=== PATIENT | female | born 1955 | race American Indian/Alaskan Native ===

== ENCOUNTER 2016-09-03 23:56 | Emergency (ER) | payer MEDICAID ==
[2016-09-04 01:35] LABS: Bilirubin,Urine NEG (Negative); Blood,Urine NEG (Negative); Ketones,Urine NEG (Negative); Leukocyte Esterase,Urine NEG (Negative); Nitrite,Urine NEG (Negative); Protein,Urine <15 mg/dL mg/dL (Negative)
[2016-09-04 01:44] LABS: Hematocrit 40.6 % (30.3-42.9); Hemoglobin 13.1 gm/dl (10.1-14.3); Mean Corpuscular HGB Conc 32 % (30-34); Mean Corpuscular Hemoglobin 28 pg (28-32); Mean Corpuscular Volume 88 fl (79-97); Platelet Count 326 K/mm3 (140-440); Red Blood Count 4.61 M/mm3 (3.65-5.03); Red Cell Distribution Width 13.5 % (13.2-15.2); White Blood Count 16.8 K/mm3 (4.5-11.0)
[2016-09-04 01:54] LABS: Anion Gap 18 mmol/L; BUN/Creatinine Ratio 23.33; Blood Urea Nitrogen 21 mg/dL (7-17); Calcium 9.4 mg/dL (8.4-10.2); Carbon Dioxide 23 mmol/L (22-30); Chloride 98.3 mmol/L (98-107); Glucose 128 mg/dL (65-100); Potassium 4.3 mmol/L (3.6-5.0); Sodium 135 mmol/L (137-145)
[2016-09-04 02:51] LABS: Blastocytes % (Manual) 0 %
[2016-09-04 02:52] LABS: Basophils % (Manual) 0 % (0.0-1.8); Diff Status Complete; Eosinophils % (Manual) 0 % (0.0-4.3); RBC Morphology Normal
[2016-09-04] MEDS: DUONEB 0.5 MG-3 MG/3 ML SOLN IH ONE (09:20)
--- NOTE | 2016-09-04 10:36 | Emergency Department Report ---
HPI - General Chief Complaint: Pain General Time Seen by Provider: 09/04/16 10:26 - HPI HPI: Chief complaint: Left neck, shoulder, arm, hip and leg pain. Headache. HPI: Patient is a 60-year-old female with history of COPD continues to smoke, congestive heart failure on digoxin, spironolactone and core ache as well as Plavix he states that Tuesday evening began having a headache and left shoulder pain. Patient states she can't move her left arm secondary to pain. Patient denies any weakness states that her left hand feels slightly numb. Mode of arrival: private car Source: Patient and family member Began: Yesterday evening Duration: Continuous Context: History of arthritis Quality: Sharp Severity: 5 out of 10 Improved with: Nothing Worsened with: Movement left shoulder, palpation left trapezius and left paraspinal musculature Associated signs and symptoms: Denies any incontinence. ED Past Medical Hx - Past Medical History Previous Medical History?: Yes Hx Hypertension: Yes Hx Heart Attack/AMI: Yes Hx Congestive Heart Failure: No Hx Diabetes: No Hx Arthritis: Yes (knees,hips,shoulder) Hx Asthma: Yes Hx COPD: No Hx HIV: No - Surgical History Past Surgical History?: Yes Hx Pacemaker: Yes Additional Surgical History: hysterectomy - Social History Smoking Status: Current Every Day Smoker Substance Use Type: Alcohol - Medications Home Medications: Home Medications Medication Instructions Recorded Confirmed Last Taken Type Albuterol Sulfate [Proventil HFA] 90 mcg IH Q4H PRN 04/11/15 09/04/16 09/03/16 History Clopidogrel Bisulfate [Clopidogrel] 75 mg PO DAILY 04/11/15 09/04/16 09/03/16 History Digoxin [Digitek] 125 mcg PO DAILY 04/11/15 09/04/16 09/03/16 History Spironolactone Tab [Aldactone Tab] 25 mg PO DAILY 04/11/15 09/04/16 09/03/16 History Tiotropium [place] [Spiriva] 18 mcg PO DAILY 04/11/15 09/04/16 09/03/16 History Coreg 25 mg PO DAILY 02/12/16 09/04/16 09/03/16 History HYDROcodone/APAP 5-325 [[place] 1 each PO Q6HR PRN #20 tablet 09/04/16 Unknown Rx 5/325] Prednisone [predniSONE 5 mg (6-Day 5 mg PO .TAPER #1 tab.ds.pk 09/04/16 Unknown Rx Pack, 21 Tabs)] predniSONE [Deltasone] 20 mg PO QPM 09/04/16 09/04/16 09/03/16 History predniSONE [Deltasone] 30 mg PO QDAY 09/04/16 09/04/16 09/03/16 History ED Review of Systems ROS: Stated complaint: WEAKNESS LF SIDE Other details as noted in HPI ROS Constitutional: No fever ENT: No uri symptoms Cardiovascular: No chest pain Respiratory: No sob or cough GI: No nausea vomiting or diarrhea : No dysuria frequency or urgency, Skin: No rash Neuro: No focal weakness Psych: No depression Julio/lymph: No edema Physical Exam - Physical Exam Vital Signs: Vital Signs 09/04/16 09/04/16 09/04/16 01:08 06:20 08:32 Temperature 98.1 F Pulse Rate 72 78 Pulse Rate [ Anterior Bilateral Throughout] Respiratory 18 16 Rate Respiratory Rate [Anterior Bilateral Throughout] Blood Pressure 145/94 Blood Pressure 145/90 [Right] O2 Sat by Pulse 97 98 95 Oximetry 09/04/16 09/04/16 09/04/16 08:46 09:00 09:01 Temperature Pulse Rate 74 69 Pulse Rate [ Anterior Bilateral Throughout] Respiratory 23 22 18 Rate Respiratory Rate [Anterior Bilateral Throughout] Blood Pressure 147/84 147/84 Blood Pressure 147/84 [Right] O2 Sat by Pulse 96 97 Oximetry 09/04/16 09/04/16 09:20 09:35 Temperature Pulse Rate Pulse Rate [ 74 80 Anterior Bilateral Throughout] Respiratory Rate Respiratory 18 18 Rate [Anterior Bilateral Throughout] Blood Pressure Blood Pressure [Right] O2 Sat by Pulse Oximetry Physical Exam: GENERAL: The patient is well-developed well-nourished . HEENT: Normocephalic. Atraumatic. Extraocular motions are intact. Patient has moist mucous membranes. NECK: Supple. No meningitic signs are noted. There is no adenopathy noted. CHEST/LUNGS: Clear to auscultation. There is no respiratory distress noted. HEART/CARDIOVASCULAR: Regular. There is no tachycardia. There is no gallop rub or murmur. ABDOMEN: Abdomen is soft, nontender. Patient has normal bowel sounds. There is no abdominal distention. SKIN: There is no rash. There is no edema. There is no diaphoresis. NEURO: The patient is awake, alert, and oriented. The patient is cooperative. The patient has no focal neurologic deficits. The patient has normal speech. MUSCULOSKELETAL: There is tenderness to the left paracervical musculature with spasm, left trapezius, F parathoracic musculature and left shoulder. There is mild tenderness to the left buttocks in a sciatic distribution. Straight leg raise is negative. ED Course Vital Signs 09/04/16 09/04/16 09/04/16 01:08 06:20 08:32 Temperature 98.1 F Pulse Rate 72 78 Pulse Rate [ Anterior Bilateral Throughout] Respiratory 18 16 Rate Respiratory Rate [Anterior Bilateral Throughout] Blood Pressure 145/94 Blood Pressure 145/90 [Right] O2 Sat by Pulse 97 98 95 Oximetry 09/04/16 09/04/16 09/04/16 08:46 09:00 09:01 Temperature Pulse Rate 74 69 Pulse Rate [ Anterior Bilateral Throughout] Respiratory 23 22 18 Rate Respiratory Rate [Anterior Bilateral Throughout] Blood Pressure 147/84 147/84 Blood Pressure 147/84 [Right] O2 Sat by Pulse 96 97 Oximetry 09/04/16 09/04/16 09:20 09:35 Temperature Pulse Rate Pulse Rate [ 74 80 Anterior Bilateral Throughout] Respiratory Rate Respiratory 18 18 Rate [Anterior Bilateral Throughout] Blood Pressure Blood Pressure [Right] O2 Sat by Pulse Oximetry - Reevaluation(s) Reevaluation #1: 09/04/16 12:28 Patient medicated with 4 of IV morphine and IV Zofran. 09/04/16 12:41 Patient medicated with 125 of IV Solu-Medrol. ED Medical Decision Making - Lab Data Result diagrams: 09/04/16 01:28 09/04/16 01:28 Laboratory Tests 09/04/16 01:28 Calcium 9.4 - Radiology Data Radiology results: report reviewed (x-ray of the lumbar spine and the left shoulder showed significant degenerative disease. 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 CT of the C-spine shows significant degenerative disc disease with foraminal narrowing the left C5 6.) Critical care attestation.: If time is entered above; I have spent that time in minutes in the direct care of this critically ill patient, excluding procedure time. ED Disposition Clinical Impression: Cervical radiculopathy at C5 Sciatica Qualifiers: Laterality: left Qualified Code(s): M54.32 - Sciatica, left side Disposition: DISCHARGED TO HOME OR SELFCARE Is pt being admited?: No Does the pt Need Aspirin: No Condition: Stable Instructions: Degenerative Disc Disease (ED), Cervical Radiculopathy (ED), Lumbar Radiculopathy (ED) Prescriptions: HYDROcodone/APAP 5-325 [[place] 5/325] 1 each PO Q6HR PRN #20 tablet PRN Reason: Pain Prednisone [predniSONE 5 mg (6-Day Pack, 21 Tabs)] 5 mg PO .TAPER #1 tab.ds.pk Referrals: ISIDRO MCDANIEL MD [Staff Physician] - 3-5 Days (Dr. Mcdaniel is the primary care doctor.) CESAR KHAN MD [Staff Physician] - 3-5 Days (Dr. Khan is a neurosurgeon.) NGOC KENDRICK MD [Staff Physician] - 3-5 Days (Dr. Kendrick is an orthopedist) Time of Disposition: 12:40
[2016-09-04] MEDS: MORPHINE IV ONE (11:35)
[2016-09-04] MEDS: ZOFRAN IV ONE (11:35)
--- NOTE | 2016-09-04 11:44 | XRay Report ---
LUMBAR SPINE THREE VIEWS: 09/03/16 23:56:00 CLINICAL: Back pain. FINDINGS: Extensive degenerative change from T12-L1 through L5-S1. Normal alignment. Disc space narrowing at L4-5 and L5-S1. Large osteophytes at all levels. The pedicles are intact. Multilevel facet joint sclerosis. The pedicles are intact. No fracture. Normal soft tissues. IMPRESSION: Extensive degenerative disc disease with large osteophytes at all levels.
--- NOTE | 2016-09-04 11:45 | XRay Report ---
LEFT SHOULDER 2 VIEWS: 09/03/16 23:56:00 CLINICAL: Shoulder pain. FINDINGS: No fracture or dislocation. Acromioclavicular joint arthritis. Mild osteopenia. Normal glenohumeral joint. Normal soft tissues. IMPRESSION: Acromioclavicular joint arthritis.
--- NOTE | 2016-09-04 12:24 | Cat Scan Report ---
CT HEAD WITHOUT CONTRAST: 09/04/16 CLINICAL: Headache. TECHNIQUE:2.5-mm noncontrast scans. COMPARISON:None FINDINGS: The ventricles and sulci are normal for age.Subtle hypodensity in the left basal ganglia at the anterior limb of the internal capsule. No other abnormal hypodensity. No mass or mass effect. No hemorrhage, edema or extra-axial collection. The sinuses are clear. Normal orbits and soft tissues. The calvarium and skull base are intact. IMPRESSION: A left basal ganglia hypodensity consistent with a lacunar infarct. A subacute nonhemorrhagic left basal ganglia lacunar infarct is a possibility.
--- NOTE | 2016-09-04 12:30 | Cat Scan Report ---
CT CERVICAL SPINE WITHOUT CONTRAST:09/04/16 CLINICAL: Neck pain. TECHNIQUE: Volumetric acquisition and 1.25-mm axial scan reconstructions without contrast. Sagittal and coronal reformats were performed. FINDINGS: Normal vertebral body alignment. Severe degenerative disc disease from C4-5 through C6-7. Loss of height of the C4, C5 and C6 vertebra with disc space narrowing and large anterior osteophytes. No fracture or subluxation. Normal soft tissues and airway. No apparent disc protrusions or bulges. Large broad-based left uncal and foraminal osteophyte producing moderate narrowing of the left neural foramen at C5. IMPRESSION: Severe degenerative disease from C4-5 through C6-7. Last C5-6 neural foraminal narrowing produced by a large osteophyte.
[2016-09-04 13:24] VITALS: BP 126/79
== END 2016-09-04 13:10 | disposition home or self-care (01) ==
LOC: ED 23:56
DX: M54.12 Radiculopathy, cervical region (principal); M54.32 Sciatica, left side; I10 Essential (primary) hypertension; I25.2 Old myocardial infarction; M19.90 Unspecified osteoarthritis, unspecified site; J45.909 Unspecified asthma, uncomplicated; F17.200 Nicotine dependence, unspecified, uncomplicated; Z90.710 Acquired absence of both cervix and uterus; Z95.0 Presence of cardiac pacemaker
CPT/HCPCS: 36415; 70450; 72100; 72125; 73030; 80048; 81001; 85007; 85025; 94640; 96374; 96375; 99285; J2270; J2405; J2930

== ENCOUNTER 2016-11-26 22:07 | Emergency (ER) | payer MEDICAID ==
[2016-11-26 23:25] LABS: Anion Gap 17 mmol/L; Blood Urea Nitrogen 13 mg/dL (7-17); Calcium 9.3 mg/dL (8.4-10.2); Carbon Dioxide 25 mmol/L (22-30); Chloride 99.2 mmol/L (98-107); Glucose 127 mg/dL (65-100); Potassium 3.9 mmol/L (3.6-5.0); Sodium 137 mmol/L (137-145)
[2016-11-26] MEDS ORDERED: NORCO 5/325 ONE (23:49)
[2016-11-26] MEDS ORDERED: NORCO 5/325 PO ONE (23:51)
[2016-11-26 23:53] LABS: Hematocrit 38.7 % (30.3-42.9); Hemoglobin 12.4 gm/dl (10.1-14.3); Mean Corpuscular HGB Conc 32 % (30-34); Mean Corpuscular Hemoglobin 29 pg (28-32); Mean Corpuscular Volume 91 fl (79-97); Platelet Count 301 K/mm3 (140-440); Red Blood Count 4.27 M/mm3 (3.65-5.03); Red Cell Distribution Width 13.3 % (13.2-15.2); White Blood Count 10.4 K/mm3 (4.5-11.0)
--- NOTE | 2016-11-27 00:23 | Emergency Department Report ---
HPI - General Chief Complaint: Extremity Injury, Upper Time Seen by Provider: 11/27/16 00:18 - HPI HPI: Patient is a 60-year-old female presents to ED complaining of left arm pain for the past 63 weeks. Patient states she saw her primary care Dr. Guzman on October. For comfort tunnel syndrome. Patient 6 Dr. Guzman gave her shot into her joint spaces days she's been experiencing some pain in her left arm. She states pain is much worse and has gotten worse over the last couple of days. Patient states she has appointment with Dr. ramires on November 29 Patient denies fever/chills/nausea/vomiting/abdominal pain/chest pain or any other problems. Patient simply states she cannot tolerate the pain in her left lower arm area. ED Past Medical Hx - Past Medical History Hx Hypertension: Yes Hx Heart Attack/AMI: Yes Hx Congestive Heart Failure: No Hx Diabetes: No Hx Arthritis: Yes (knees,hips,shoulder) Hx Asthma: Yes Hx COPD: No Hx HIV: No Additional medical history: carpal tunnel syndrome both wrist - Surgical History Hx Pacemaker: Yes Additional Surgical History: hysterectomy,defibilator - Social History Smoking Status: Current Every Day Smoker Substance Use Type: None - Medications Home Medications: Home Medications Medication Instructions Recorded Confirmed Last Taken Type Albuterol Sulfate [Proventil HFA] 90 mcg IH Q4H PRN 04/11/15 11/26/16 11/26/16 History Clopidogrel Bisulfate [Clopidogrel] 75 mg PO DAILY 04/11/15 11/26/16 11/26/16 History Digoxin [Digitek] 125 mcg PO DAILY 04/11/15 11/26/16 11/26/16 History Spironolactone Tab [Aldactone Tab] 25 mg PO DAILY 04/11/15 11/26/16 11/26/16 History Tiotropium [place] [Spiriva] 18 mcg PO DAILY 04/11/15 11/26/16 11/26/16 History Coreg 25 mg PO DAILY 02/12/16 11/26/16 11/26/16 History HYDROcodone/APAP 5-325 [[place] 1 each PO Q6HR PRN #20 tablet 09/04/16 11/26/16 Unknown Rx 5/325] Prednisone [predniSONE 5 mg (6-Day 5 mg PO .TAPER #1 tab.ds.pk 09/04/16 Unknown Rx Pack, 21 Tabs)] predniSONE [Deltasone] 20 mg PO QPM 09/04/16 11/26/16 11/26/16 History predniSONE [Deltasone] 30 mg PO QDAY 09/04/16 11/26/16 09/03/16 History Acetaminophen-Codeine #4 TAB 1 mg PO PRN PRN 11/26/16 11/26/16 Unknown History Promethazine/Phenyleph/Codeine 1 ml PO DAILY 11/26/16 11/26/16 11/26/16 History [Promethazine Vc-Codeine Syrup] Acetaminophen/Codeine [Tylenol 1 tab PO Q6H PRN #12 tab 11/27/16 Unknown Rx /Codeine # 3 tab] Cyclobenzaprine [Flexeril] 10 mg PO QHS PRN #20 tablet 11/27/16 Unknown Rx Diclofenac Sodium 75 mg PO BID #30 tablet. 11/27/16 Unknown Rx ED Review of Systems ROS: Stated complaint: L ARM PAIN Other details as noted in HPI Constitutional: denies: chills, fever Eyes: denies: eye pain, eye discharge, vision change ENT: denies: ear pain, throat pain Respiratory: denies: cough, shortness of breath, wheezing Cardiovascular: denies: chest pain, palpitations Endocrine: no symptoms reported Gastrointestinal: denies: abdominal pain, nausea, diarrhea Genitourinary: denies: urgency, dysuria, discharge Musculoskeletal: denies: back pain, joint swelling, arthralgia Skin: denies: rash, lesions Neurological: denies: headache, weakness, paresthesias Psychiatric: denies: anxiety, depression Hematological/Lymphatic: denies: easy bleeding, easy bruising Physical Exam - Physical Exam Vital Signs: Vital Signs 11/26/16 11/26/16 22:14 23:19 Temperature 98.3 F Pulse Rate 87 Respiratory 22 18 Rate Blood Pressure 158/108 O2 Sat by Pulse 98 Oximetry Physical Exam: GENERAL: Alert and oriented x3, in some mild distress, patient is crying stating she is in pain, Normal Gait, atraumatic. HEAD: Head is normocephalic and a-traumatic. EYES: Extra ocular muscles are intact. Pupils are equal, round, and reactive to light and accommodation. NECK: Supple. Non edematous, No carotid bruits. No lymphadenopathy or thyromegaly. No C-spine tenderness LUNGS: Symetrical with respiration, No wheezing, no rales or crackles, CTAB. HEART: S1, S2 present, regular rate and rhythm without murmur, no rubs, no gallops. EXTREMITIES/MUSCULOSKELETAL: No cyanosis, clubbing, rash, lesions or edema. Full ROM bilaterally. UE/LE Pulses 2+ bilaterally. LE and UE 5+ strength bilaterally, NEUROLOGIC: The patient is cooperative with no focal neurologic deficits. Cranial nerves II through XII are grossly intact. Normal speech. Normal sensation in bilateral upper extremities, No loss of sensation, SKIN: Warm and dry, No lesions, No ulceration or induration present. ED Course Vital Signs 11/26/16 11/26/16 22:14 23:19 Temperature 98.3 F Pulse Rate 87 Respiratory 22 18 Rate Blood Pressure 158/108 O2 Sat by Pulse 98 Oximetry ED Medical Decision Making - Lab Data Result diagrams: 11/26/16 22:48 11/26/16 22:48 - Medical Decision Making 60-year-old female presents with carpal tunnel syndrome exacerbation ED course: Patient received Valium, norco inED. CBC, CMP, troponin was ordered prior to my evaluation of this patient All labs within normal limits EKG completed EKG shows normal sinus rhythm with some abnormalities seen from old EKG Discuss all findings the patient Patient agitation decreased. Discussed the patient follow up with her primary care doctor. Discussed home medication to help with the pain. Vital signs are normal patient is in no acute distress Critical care attestation.: If time is entered above; I have spent that time in minutes in the direct care of this critically ill patient, excluding procedure time. ED Disposition Clinical Impression: Carpal tunnel syndrome of left wrist Arthralgia Qualifiers: Joint pain location: wrist Laterality: left Qualified Code(s): M25.532 - Pain in left wrist Disposition: DISCHARGED TO HOME OR SELFCARE Is pt being admited?: No Does the pt Need Aspirin: No Condition: Stable Instructions: Carpal Tunnel Syndrome (ED), Paresthesia (ED) Prescriptions: Cyclobenzaprine [Flexeril] 10 mg PO QHS PRN #20 tablet PRN Reason: Muscle Spasm Acetaminophen/Codeine [Tylenol /Codeine # 3 tab] 1 tab PO Q6H PRN #12 tab PRN Reason: Pain Diclofenac Sodium 75 mg PO BID #[address] tablet.[address] Mclean: ISIDRO ALCALA MD [Primary Care Provider] - 3-5 Days Forms: Accompanied Note, Work/School Release Form(ED) Time of Disposition: 01:18
[2016-11-27] MEDS ORDERED: VALIUM PO ONE (01:00)
[2016-11-27] MEDS ORDERED: NORCO 5/325 PO ONE (01:28)
[2016-11-27 01:29] VITALS: BP 134/86
== END 2016-11-27 01:33 | disposition home or self-care (01) ==
LOC: ED 22:07
DX: G56.02 Carpal tunnel syndrome, left upper limb (principal); I10 Essential (primary) hypertension; F17.200 Nicotine dependence, unspecified, uncomplicated; I25.2 Old myocardial infarction; M19.90 Unspecified osteoarthritis, unspecified site; J45.909 Unspecified asthma, uncomplicated; Z79.02 Long term (current) use of antithrombotics/antiplatelets; Z95.0 Presence of cardiac pacemaker
CPT/HCPCS: 36415; 80048; 84484; 85027; 93005; 93010; 99283

== ENCOUNTER 2017-02-12 16:27 | Emergency (ER) | payer MEDICAID ==
[2017-02-12 17:10] LABS: Eosinophils % (Auto) 2.7 % (0.0-4.3); Hematocrit 38.1 % (30.3-42.9); Hemoglobin 12.4 gm/dl (10.1-14.3); Mean Corpuscular HGB Conc 33 % (30-34); Mean Corpuscular Hemoglobin 29 pg (28-32); Mean Corpuscular Volume 90 fl (79-97); Platelet Count 291 K/mm3 (140-440); Red Blood Count 4.23 M/mm3 (3.65-5.03); Red Cell Distribution Width 13.4 % (13.2-15.2); White Blood Count 9.9 K/mm3 (4.5-11.0)
[2017-02-12 17:19] LABS: Anion Gap 20 mmol/L; BUN/Creatinine Ratio 13.33; Blood Urea Nitrogen 12 mg/dL (7-17); Calcium 8.7 mg/dL (8.4-10.2); Carbon Dioxide 19 mmol/L (22-30); Glucose 135 mg/dL (65-100); Potassium 3.8 mmol/L (3.6-5.0); Sodium 138 mmol/L (137-145)
--- NOTE | 2017-02-12 17:45 | XRay Report ---
FINAL REPORT EXAM: XR CHEST ROUTINE 2V HISTORY: Shortness of breath TECHNIQUE: Chest two views frontal and lateral PRIORS: None. FINDINGS: Cardiac and mediastinal contours are unremarkable. No focal pulmonary infiltrate is identified. No pleural fluid collection seen. Pulmonary vasculature is unremarkable. Pacemaker is present. Lead wires are intact. IMPRESSION: Pacemaker. No acute abnormality.
[2017-02-12] MEDS: ATROVENT IH ONE ×2 (21:10→22:05)
[2017-02-12] MEDS: XOPENEX IH ONE ×2 (21:10→22:04)
--- NOTE | 2017-02-12 21:11 | Emergency Department Report ---
ED Shortness of Breath HPI - General Chief Complaint: Dyspnea/Respdistress Stated Complaint: CHEST PAIN Time Seen by Provider: 02/12/17 21:01 Source: patient, EMS Mode of arrival: Ambulatory Limitations: No Limitations - History of Present Illness Initial Comments: 61 years old female, with shortness of breath for 3 days history of COPD congestive heart failure. Patient is being coughing greenish sputum denied any fever nausea vomiting. Describes a left-sided chest pain sharp in nature increased with inspiration no other complaint. MD Complaint: shortness of breath, cough, chest pain - Related Data Home Medications Medication Instructions Recorded Confirmed Last Taken Albuterol Sulfate [Proventil HFA] 90 mcg IH Q4H PRN 04/11/15 11/26/16 11/26/16 Clopidogrel Bisulfate [Clopidogrel] 75 mg PO DAILY 04/11/15 11/26/16 11/26/16 Digoxin [Digitek] 125 mcg PO DAILY 04/11/15 11/26/16 11/26/16 Spironolactone Tab [Aldactone Tab] 25 mg PO DAILY 04/11/15 11/26/16 11/26/16 Tiotropium [place] [Spiriva] 18 mcg PO DAILY 04/11/15 11/26/16 11/26/16 Coreg 25 mg PO DAILY 02/12/16 11/26/16 11/26/16 predniSONE [Deltasone] 20 mg PO QPM 09/04/16 11/26/16 11/26/16 predniSONE [Deltasone] 30 mg PO QDAY 09/04/16 11/26/16 09/03/16 Acetaminophen-Codeine #4 TAB 1 mg PO PRN PRN 11/26/16 11/26/16 Unknown Promethazine/Phenyleph/Codeine 1 ml PO DAILY 11/26/16 11/26/16 11/26/16 [Promethazine Vc-Codeine Syrup] Previous Rx's Medication Instructions Recorded Last Taken Type HYDROcodone/APAP 5-325 [[place] 1 each PO Q6HR PRN #20 tablet 09/04/16 Unknown Rx 5/325] Prednisone [predniSONE 5 mg (6-Day 5 mg PO .TAPER #1 tab.ds.pk 09/04/16 Unknown Rx Pack, 21 Tabs)] Acetaminophen/Codeine [Tylenol 1 tab PO Q6H PRN #12 tab 11/27/16 Unknown Rx /Codeine # 3 tab] Cyclobenzaprine [Flexeril] 10 mg PO QHS PRN #20 tablet 11/27/16 Unknown Rx Diclofenac Sodium 75 mg PO BID #30 tablet. 11/27/16 Unknown Rx Levofloxacin [Levaquin TAB] 500 mg PO QDAY #7 tablet 02/12/17 Unknown Rx Prednisone [predniSONE 10 mg 10 mg PO .TAPER #1 tab.ds.pk 02/12/17 Unknown Rx (6-Day Pack, 21 Tabs)] Allergies Allergy/AdvReac Type Severity Reaction Status Date / Time aspirin Allergy Unknown Verified 04/11/15 19:35 Penicillins Allergy Unknown Verified 04/11/15 19:35 Tetanus Vaccines & Toxoid Allergy Unknown Verified 09/04/16 01:13 ED Review of Systems ROS: Stated complaint: CHEST PAIN Other details as noted in HPI Comment: All other systems reviewed and negative Constitutional: denies: chills, fever Respiratory: cough, shortness of breath, SOB with exertion, wheezing Cardiovascular: chest pain, orthopnea Gastrointestinal: denies: abdominal pain, nausea Neurological: denies: headache, numbness, confusion ED Past Medical Hx - Past Medical History Previous Medical History?: Yes Hx Hypertension: Yes Hx Heart Attack/AMI: Yes Hx Congestive Heart Failure: No Hx Diabetes: No Hx Arthritis: Yes (knees,hips,shoulder) Hx Asthma: Yes Hx COPD: No Hx HIV: No Additional medical history: carpal tunnel syndrome both wrist - Surgical History Past Surgical History?: Yes Hx Pacemaker: Yes Additional Surgical History: hysterectomy,defibilator - Social History Smoking Status: Current Some Day Smoker Substance Use Type: None - Medications Home Medications: Home Medications Medication Instructions Recorded Confirmed Last Taken Type Albuterol Sulfate [Proventil HFA] 90 mcg IH Q4H PRN 04/11/15 11/26/16 11/26/16 History Clopidogrel Bisulfate [Clopidogrel] 75 mg PO DAILY 04/11/15 11/26/16 11/26/16 History Digoxin [Digitek] 125 mcg PO DAILY 04/11/15 11/26/16 11/26/16 History Spironolactone Tab [Aldactone Tab] 25 mg PO DAILY 04/11/15 11/26/16 11/26/16 History Tiotropium [place] [Spiriva] 18 mcg PO DAILY 04/11/15 11/26/1617 History Coreg 25 mg PO DAILY 02/12/16 11/26/16 11/26/16 History HYDROcodone/APAP 5-325 [[place] 1 each PO Q6HR PRN #20 tablet 09/04/16 11/26/16 Unknown Rx 5/325] Prednisone [predniSONE 5 mg (6-Day 5 mg PO .TAPER #1 tab.ds.pk 09/04/16 Unknown Rx Pack, 21 Tabs)] predniSONE [Deltasone] 20 mg PO QPM 09/04/16 11/26/16 11/26/16 History predniSONE [Deltasone] 30 mg PO QDAY 09/04/16 11/26/16 09/03/16 History Acetaminophen-Codeine #4 TAB 1 mg PO PRN PRN 11/26/16 11/26/16 Unknown History Promethazine/Phenyleph/Codeine 1 ml PO DAILY 11/26/16 11/26/16 11/26/16 History [Promethazine Vc-Codeine Syrup] Acetaminophen/Codeine [Tylenol 1 tab PO Q6H PRN #12 tab 11/27/16 Unknown Rx /Codeine # 3 tab] Cyclobenzaprine [Flexeril] 10 mg PO QHS PRN #20 tablet 11/27/16 Unknown Rx Diclofenac Sodium 75 mg PO BID #30 tablet. 11/27/16 Unknown Rx Levofloxacin [Levaquin TAB] 500 mg PO QDAY #7 tablet 02/12/17 Unknown Rx Prednisone [predniSONE 10 mg 10 mg PO .TAPER #1 tab.ds.pk 02/12/17 Unknown Rx (6-Day Pack, 21 Tabs)] ED Physical Exam - General Limitations: No Limitations General appearance: alert, in no apparent distress - Neck Neck exam: Present: normal inspection - Respiratory Respiratory exam: Present: wheezes, rhonchi, decreased breath sounds, prolonged expiratory. Absent: rales, stridor - Cardiovascular Cardiovascular Exam: Present: regular rate, normal rhythm, normal heart sounds - GI/Abdominal GI/Abdominal exam: Present: soft. Absent: tenderness, guarding, rebound, mass, bruit, pulsatile mass, hernia - Neurological Exam Neurological exam: Present: alert, oriented X3, CN II-XII intact - Skin Skin exam: Present: warm, normal color ED Course Vital Signs 02/12/17 02/12/17 02/12/17 16:38 21:39 21:40 Temperature 99 F Pulse Rate 81 74 Respiratory 26 H 20 18 Rate Blood Pressure 117/79 Blood Pressure 129/75 [Left] O2 Sat by Pulse 97 98 Oximetry - Reevaluation(s) Reevaluation #1: 02/12/17 22:00 Patient stated that she is feeling much better no shortness of breath on exam no wheezing. Advised patient to follow-up with her primary care physician and correctional counselor patient on her smoking too ED Medical Decision Making - Lab Data Result diagrams: 02/12/17 16:45 02/12/17 16:45 Critical care attestation.: If time is entered above; I have spent that time in minutes in the direct care of this critically ill patient, excluding procedure time. ED Disposition Clinical Impression: COPD with exacerbation Disposition: DC-01 TO HOME OR SELFCARE Is pt being admited?: No Condition: Stable Instructions: Chronic Obstructive Pulmonary Disease (ED) Referrals: PRIMARY CARE [Primary Care Provider] - 3-5 Days
[2017-02-12 22:22] VITALS: BP 123/68
== END 2017-02-12 22:22 | disposition home or self-care (01) ==
LOC: ED 16:27
DX: J44.1 Chronic obstructive pulmonary disease with (acute) exacerbation (principal); I10 Essential (primary) hypertension; I21.3 ST elevation (STEMI) myocardial infarction of unspecified site; M19.90 Unspecified osteoarthritis, unspecified site; F17.200 Nicotine dependence, unspecified, uncomplicated; Z90.710 Acquired absence of both cervix and uterus; Z95.0 Presence of cardiac pacemaker; Z88.0 Allergy status to penicillin; Z88.6 Allergy status to analgesic agent; Z88.7 Allergy status to serum and vaccine
CPT/HCPCS: 36415; 71020; 80048; 83880; 84484; 85025; 93005; 93010; 94640; 96372; 99284; J2930

== ENCOUNTER 2017-07-06 00:49 | Emergency (ER) | payer MEDICAID ==
--- NOTE | 2017-07-06 00:54 | Emergency Department Report ---
ED General Adult HPI - General Chief complaint: Chest Pain Stated complaint: DIFFICULTY IN BREATHING Source: patient, EMS (ems notes not available at time of chart dictation), RN notes reviewed, old records reviewed Mode of arrival: Stretcher Limitations: No Limitations - History of Present Illness Initial comments: This is a 61-year-old female who was previously unknown to this provider, has a past medical history of heart disease, ICD placement, also reports a history of bronchitis. Patient is brought to the hospital by EMS for left-sided chest wall pain. She has been indicating that she's been coughing, has some left- sided chest wall pain that is associated with cough. She has chronic shortness of breath, and she was to some blood-tinged emesis. There is no leg pain or leg swelling, and patient denies DVT and pulmonary embolus risk factors. Her pain is sharp, it does not radiate anywhere, it increases with breathing, coughing, and it decreases with rest and IV fentanyl. Patient reports she's been having a cough, this has proceeded her pain. -: Gradual Location: chest Radiation: non-radiation Quality: burning, stabbing, aching Consistency: constant Improves with: medication Worsens with: movement Associated Symptoms: chest pain, cough, malaise, shortness of breath, weakness. denies: confusion, headaches, loss of appetite, seizure, syncope - Related Data Home Medications Medication Instructions Recorded Confirmed Last Taken Albuterol Sulfate [Proventil HFA] 90 mcg IH Q4H PRN 04/11/15 11/26/16 11/26/16 Clopidogrel Bisulfate [Clopidogrel] 75 mg PO DAILY 04/11/15 11/26/16 11/26/16 Digoxin [Digitek] 125 mcg PO DAILY 04/11/15 11/26/16 11/26/16 Spironolactone Tab [Aldactone Tab] 25 mg PO DAILY 04/11/15 11/26/16 11/26/16 Tiotropium [place] [Spiriva] 18 mcg PO DAILY 04/11/15 11/26/16 11/26/16 Coreg 25 mg PO DAILY 02/12/16 11/26/16 11/26/16 predniSONE [Deltasone] 20 mg PO QPM 09/04/16 11/26/16 11/26/16 predniSONE [Deltasone] 30 mg PO QDAY 03/05/1311/26/16 09/03/16 Acetaminophen-Codeine #4 TAB 1 mg PO PRN PRN 11/26/16 11/26/16 Unknown Promethazine/Phenyleph/Codeine 1 ml PO DAILY 11/26/16 11/26/16 11/26/16 [Promethazine Vc-Codeine Syrup] Previous Rx's Medication Instructions Recorded Last Taken Type HYDROcodone/APAP 5-325 [[place] 1 each PO Q6HR PRN #20 tablet 09/04/16 Unknown Rx 5/325] Prednisone [predniSONE 5 mg (6-Day 5 mg PO .TAPER #1 tab.ds.pk 09/04/16 Unknown Rx Pack, 21 Tabs)] Acetaminophen/Codeine [Tylenol 1 tab PO Q6H PRN #12 tab 11/27/16 Unknown Rx /Codeine # 3 tab] Cyclobenzaprine [Flexeril] 10 mg PO QHS PRN #20 tablet 11/27/16 Unknown Rx Diclofenac Sodium 75 mg PO BID #30 tablet.dr 11/27/16 Unknown Rx Levofloxacin [Levaquin TAB] 500 mg PO QDAY #7 tablet 02/12/17 Unknown Rx Ondansetron [Zofran Odt] 4 mg PO Q8HR PRN #14 tab.rapdis 02/12/17 Unknown Rx Prednisone [predniSONE 10 mg 10 mg PO .TAPER #1 tab.ds.pk 02/12/17 Unknown Rx (6-Day Pack, 21 Tabs)] traMADol [Ultram] 50 mg PO Q6HR PRN #14 tablet 02/12/17 Unknown Rx Albuterol Sulfate [Proair 90 mcg IH Q4HR PRN #2 aer.pow.ba 07/06/17 Unknown Rx Respiclick] Ipratropium [place] [Atrovent Hfa] 12.9 gm IH Q4HR #2 hfa.aer.ad 07/06/17 Unknown Rx Ondansetron [Zofran Odt] 4 mg PO Q8HR PRN #20 tab.rapdis 07/06/17 Unknown Rx Allergies Allergy/AdvReac Type Severity Reaction Status Date / Time aspirin Allergy Unknown Verified 04/11/15 19:35 Penicillins Allergy Unknown Verified 04/11/15 19:35 Tetanus Vaccines and Toxoid Allergy Unknown Verified 09/04/16 01:13 [Tetanus Vaccines & Toxoid] ED Review of Systems ROS: Stated complaint: DIFFICULTY IN BREATHING Other details as noted in HPI ED Past Medical Hx - Past Medical History Hx Hypertension: Yes Hx Heart Attack/AMI: Yes Hx Congestive Heart Failure: No Hx Diabetes: No Hx Arthritis: Yes (knees,hips,shoulder) Hx Asthma: Yes Hx COPD: No Hx HIV: No Additional medical history: carpal tunnel syndrome both wrist - Surgical History Hx Pacemaker: Yes Additional Surgical History: hysterectomy,defibilator - Social History Smoking Status: Current Some Day Smoker Substance Use Type: None - Medications Home Medications: Home Medications Medication Instructions Recorded Confirmed Last Taken Type Albuterol Sulfate [Proventil HFA] 90 mcg IH Q4H PRN 04/11/15 11/26/16 11/26/16 History Clopidogrel Bisulfate [Clopidogrel] 75 mg PO DAILY 04/11/15 11/26/16 11/26/16 History Digoxin [Digitek] 125 mcg PO DAILY 04/11/15 11/26/16 11/26/16 History Spironolactone Tab [Aldactone Tab] 25 mg PO DAILY 04/11/15 11/26/16 11/26/16 History Tiotropium [place] [Spiriva] 18 mcg PO DAILY 04/11/15 11/26/16 11/26/16 History Coreg 25 mg PO DAILY 02/12/16 11/26/16 11/26/16 History HYDROcodone/APAP 5-325 [[place] 1 each PO Q6HR PRN #20 tablet 09/04/16 11/26/16 Unknown Rx 5/325] Prednisone [predniSONE 5 mg (6-Day 5 mg PO .TAPER #1 tab.ds.pk 09/04/16 Unknown Rx Pack, 21 Tabs)] predniSONE [Deltasone] 20 mg PO QPM 09/04/16 11/26/16 11/26/16 History predniSONE [Deltasone] 30 mg PO QDAY 09/04/16 11/26/16 09/03/16 History Acetaminophen-Codeine #4 TAB 1 mg PO PRN PRN 11/26/16 11/26/16 Unknown History Promethazine/Phenyleph/Codeine 1 ml PO DAILY 11/26/16 11/26/16 11/26/16 History [Promethazine Vc-Codeine Syrup] Acetaminophen/Codeine [Tylenol 1 tab PO Q6H PRN #12 tab 11/27/16 Unknown Rx /Codeine # 3 tab] Cyclobenzaprine [Flexeril] 10 mg PO QHS PRN #20 tablet 11/27/16 Unknown Rx Diclofenac Sodium 75 mg PO BID #30 tablet.dr 11/27/16 Unknown Rx Levofloxacin [Levaquin TAB] 500 mg PO QDAY #7 tablet 02/12/17 Unknown Rx Ondansetron [Zofran Odt] 4 mg PO Q8HR PRN #14 tab.rapdis 02/12/17 Unknown Rx Prednisone [predniSONE 10 mg 10 mg PO .TAPER #1 tab.ds.pk 02/12/17 Unknown Rx (6-Day Pack, 21 Tabs)] traMADol [Ultram] 50 mg PO Q6HR PRN #14 tablet 02/12/17 Unknown Rx Albuterol Sulfate [Proair 90 mcg IH Q4HR PRN #2 aer.pow.ba 07/06/17 Unknown Rx Respiclick] Ipratropium [place] [Atrovent Hfa] 12.9 gm IH Q4HR #2 hfa.aer.ad 07/06/17 Unknown Rx Ondansetron [Zofran Odt] 4 mg PO Q8HR PRN #20 tab.rapdis 07/06/17 Unknown Rx ED Physical Exam - General General appearance: alert, in distress, obese - Head Head exam: Present: atraumatic, normocephalic - Eye Eye exam: Present: normal appearance, EOMI. Absent: nystagmus - ENT ENT exam: Present: normal exam, normal orophraynx, mucous membranes moist, normal external ear exam - Neck Neck exam: Present: normal inspection, full ROM - Respiratory Respiratory exam: Present: normal lung sounds bilaterally, chest wall tenderness. Absent: respiratory distress, wheezes, rales, rhonchi, stridor - Cardiovascular Cardiovascular Exam: Present: regular rate, normal rhythm, normal heart sounds. Absent: bradycardia, tachycardia, irregular rhythm, systolic murmur, diastolic murmur, rubs, gallop - GI/Abdominal GI/Abdominal exam: Present: soft, distended, normal bowel sounds. Absent: tenderness, guarding, rebound, rigid, pulsatile mass - Extremities Exam Extremities exam: Present: normal inspection, full ROM, normal capillary refill , pedal edema. Absent: joint swelling - Back Exam Back exam: Present: normal inspection, full ROM. Absent: tenderness, CVA tenderness (R), paraspinal tenderness, vertebral tenderness - Neurological Exam Neurological exam: Present: alert, oriented X3, CN II-XII intact, other ( Extraocular movements intact. Tongue midline. No facial droop. Facial sensation intact to light touch in the V1, V2, V3 distribution bilaterally. 5 and 5 strength in 4 extremities.. Sensation is intact to light touch in 4 extremities.). Absent: motor sensory deficit - Psychiatric Psychiatric exam: Present: normal affect, normal mood - Skin Skin exam: Present: warm, dry, intact, normal color. Absent: rash ED Course Vital Signs 07/06/17 07/06/17 07/06/17 01:07 02:00 02:01 Temperature 98.5 F Pulse Rate 79 78 Respiratory 26 H 17 Rate Blood Pressure 134/78 130/73 Blood Pressure 134/78 [Right] O2 Sat by Pulse 98 98 99 Oximetry - Reevaluation(s) Reevaluation #1: 07/06/17 03:53 Differential diagnosis, including but not limited to: Bronchitis, COPD, pneumonia, bronchiectasis, pulmonary embolus, fractured rib, pneumothorax Assessment and plan: A 1-year-old female complaining of cough, rib pain, bloody cough, no pulmonary embolus or DVT risk factors, low risk by well's criteria, troponin negative 2, EKG unchanged 2, clinical history is unlikely to be related to acute coronary syndrome, patient is low risk by CHLOE score, she is low risk by heart score. Her symptoms were markedly improved with IV fentanyl. Reevaluation #2: 07/06/17 04:45 CT scan of the chest was negative for acute medical findings, pulmonary embolus and pneumonia. Incidental right-sided abnormalities noted, the patient can follow-up with her outpatient primary care doctor for this. Troponin negative 2, EKG unchanged 2, the patient is now resting comfortably. Most likely has bronchitis with component of costochondritis, patient is suitable to follow-up with her outpatient primary care doctor. Based on the history and physical, patient low risk by CHLOE score, low risk by heart score. - EJ/Peripheral Line Neck L Time Out Performed: Yes Indications: multiple IV sites needed Skin Cleansed in Sterile Fashion: Yes Size: 18 Dressing Placed: Tegaderm Patient Tolerated Procedure: well ED Medical Decision Making - Lab Data Result diagrams: 07/06/17 01:00 07/06/17 01:00 Vital Signs 07/06/17 07/06/17 07/06/17 01:07 02:00 02:01 Temperature 98.5 F Pulse Rate 79 78 Respiratory 26 H 17 Rate Blood Pressure 134/78 130/73 Blood Pressure 134/78 [Right] O2 Sat by Pulse 98 98 99 Oximetry Labs 07/06/17 07/06/17 07/06/17 01:00 01:00 01:00 WBC 12.9 H RBC 4.34 Hgb 12.8 Hct 38.6 MCV 89 MCH 29 MCHC 33 RDW 13.2 Plt Count 283 Lymph % (Auto) 23.9 [place] % (Auto) 8.3 H Eos % (Auto) 3.2 Baso % (Auto) 0.6 Lymph # 3.1 [place] # 1.1 H Eos # 0.4 Baso # 0.1 Seg Neutrophils % 64.0 Seg Neutrophils # 8.3 H PT 12.2 INR 0.87 APTT 26.6 POC ABG pH POC ABG pCO2 POC ABG pO2 POC ABG HCO3 POC ABG Total CO2 POC ABG O2 Sat POC ABG Base Excess FiO2 Sodium 139 Potassium 4.2 Chloride 100.3 Carbon Dioxide 25 Anion Gap 18 BUN 15 Creatinine 1.0 Estimated GFR > 60 BUN/Creatinine Ratio 15 Glucose 85 Lactic Acid Calcium 9.2 Magnesium 1.70 Total Bilirubin 0.40 AST 28 ALT 26 Alkaline Phosphatase 69 Troponin T < 0.010 Total Protein 7.8 Albumin 3.9 Albumin/Globulin Ratio 1.0 07/06/17 07/06/17 01:00 01:46 WBC RBC Hgb Hct MCV MCH MCHC RDW Plt Count Lymph % (Auto) [place] % (Auto) Eos % (Auto) Baso % (Auto) Lymph # [place] # Eos # Baso # Seg Neutrophils % Seg Neutrophils # PT INR APTT POC ABG pH 7.456 H POC ABG pCO2 31.4 L POC ABG pO2 131 H POC ABG HCO3 22.1 POC ABG Total CO2 23 POC ABG O2 Sat 99 POC ABG Base Excess -2 FiO2 32 Sodium Potassium Chloride Carbon Dioxide Anion Gap BUN Creatinine Estimated GFR BUN/Creatinine Ratio Glucose Lactic Acid 0.80 Calcium Magnesium Total Bilirubin AST ALT Alkaline Phosphatase Troponin T Total Protein Albumin Albumin/Globulin Ratio - EKG Data Interpretation: unchanged when compared t (02/12/2017) 07/06/17 03:54 Sinus, 80 bpm, left ventricular hypertrophy, left axis deviation, incomplete right bundle-branch block, numerous T-wave abnormalities in the lateral leads, abnormal EKG, not morphologically consistent with ST elevation myocardial infarction - Radiology Data Radiology results: report reviewed, image reviewed Referring Physician: KYRA NUNN Patient Name: IVAN DIEZ Date of : 1955 Sex: Female Report Date: 2017-07-05 Report Status: Finalized Findings [address] [address] XRay Report Signed Patient: IVAN DIEZ MR#: [id number] : 1955 Acct:[id number] Age/Sex: 61 / F ADM Date: 07/06/17 Loc: ED Attending Dr: Ordering Physician: KYRA NUNN MD Date of Service: 07/06/17 Procedure(s): XR chest 1V ap Accession Number(s): [id number] cc: KYRA NUNN MD Fluoro Time In Minutes: FINAL REPORT EXAM: XR CHEST 1V AP HISTORY: Dyspnea TECHNIQUE: A portable upright view the chest was obtained. Comparison is made to the study of 02/12/2017. FINDINGS: Heart size and mediastinum appear normal. The lungs are clear. Pleural fluid is not seen. There is a pacemaker overlying the left chest wall with the lead in the right ventricle. The bones and soft tissues do not show any acute changes. IMPRESSION: No active chest disease. Transcribed By: RB Dictated By: NIKO REINOSO MD Electronically Authenticated By: NIKO REINOSO MD Signed Date/Time: 07/05/17 2151 Referring Physician: KYRA NUNN Patient Name: IVAN DIEZ Date of : 1955 Sex: Female Report Date: 2017-07-05 Report Status: Finalized Findings [address] [address] Cat Scan Report Signed Patient: IVAN DIEZ MR#: [id number] : 1955 Acct:[id number] Age/Sex: 61 / F ADM Date: 07/06/17 Loc: ED Attending Dr: Ordering Physician: KYRA NUNN MD Date of Service: 07/06/17 Procedure(s): CT angio chest Accession Number(s): [id number] cc: KYRA NUNN MD FINAL REPORT EXAM: CT ANGIO CHEST HISTORY: left sided cp TECHNIQUE: A CT angiogram was obtained of the thorax following the intravenous injection of 100 cc of Omnipaque 350. Rotational, sagittal and coronal MIP reconstructions were reviewed. FINDINGS: There is no evidence of pulmonary embolus, vascular congestion, or aortic dissection. The heart size is normal. Pericardial fluid is not seen. There is no evidence of lymphadenopathy. The lungs reveal diffuse interstitial prominence and emphysematous changes. There are no localized infiltrates or effusions. In the posterior segment of the right upper lobe is a noncalcified 8.4 millimeter solitary pulmonary nodule. No additional nodules are seen. At the thoracic inlet there is diffuse enlargement of thyroid gland with heterogeneous attenuation compatible with multinodular goiter. There is a pacemaker along the left chest wall. The skeletal structures reveal multilevel disc degeneration in the thoracic spine. IMPRESSION: No evidence of pulmonary embolus, vascular congestion, or aortic dissection. Emphysema with extensive interstitial changes. 8.4 mm solitary pulmonary nodule in the posterior segment of the right upper lobe. Follow-up study recommended 3 months to confirm stability. Multinodular goiter. Transcribed By: RB Dictated By: NIKO REINOSO MD Electronically Authenticated By: NIKO REINOSO MD Signed Date/Time: 07/05/17 2613 Critical care attestation.: If time is entered above; I have spent that time in minutes in the direct care of this critically ill patient, excluding procedure time. ED Disposition Clinical Impression: Chest wall pain Disposition: -01 TO HOME OR SELFCARE Is pt being admited?: No Does the pt Need Aspirin: No Condition: Stable Instructions: Chest Pain (ED) Additional Instructions: Rest and avoid heavy lifting and avoid strenuous physical activity. Take pain medication, breathing medication as directed. Follow-up with the primary care doctor or applications coordinator within the next 3-5 days. Return to the ER right away with new pain, worsening pain, migration of pain, fevers, chills, lethargy, irritability, projectile vomiting, change in mental status, inability to tolerate liquid feeds. Please note that CT scan of the chest demonstrated a right-sided pulmonary nodule, and this easily followed by a primary care doctor as recommended. Not following up as recommended a resultant undiagnosed tumor, cancer, malignancy. Prescriptions: Albuterol Sulfate [Proair Respiclick] 90 mcg IH Q4HR PRN #2 aer.pow.ba PRN Reason: Wheezing Ipratropium [place] [Atrovent Hfa] 12.9 gm IH Q4HR #2 hfa.aer.ad Ondansetron [Zofran Odt] 4 mg PO Q8HR PRN #20 tab.rapdis PRN Reason: Nausea Referrals: KYRA PERRY MD [Primary Care Provider] - 3-5 Days [facility] [Provider Group] - 3-5 Days [facility] [Provider Group] - 3-5 Days [facility] [Provider Group] - 3-5 Days
[2017-07-06 01:38] LABS: Basophils # (Auto) 0.1 K/mm3 (0.0-0.1); Basophils % (Auto) 0.6 % (0.0-1.8); Eosinophils # (Auto) 0.4 K/mm3 (0.0-0.4); Eosinophils % (Auto) 3.2 % (0.0-4.3); Hematocrit 38.6 % (30.3-42.9); Hemoglobin 12.8 gm/dl (10.1-14.3); Lymphocytes # (Auto) 3.1 K/mm3 (1.2-5.4); Lymphocytes % (Auto) 23.9 % (13.4-35.0); Mean Corpuscular HGB Conc 33 % (30-34); Mean Corpuscular Hemoglobin 29 pg (28-32); Mean Corpuscular Volume 89 fl (79-97); Monocytes # (Auto) 1.1 K/mm3 (0.0-0.8); Monocytes % (Auto) 8.3 % (0.0-7.3); Platelet Count 283 K/mm3 (140-440); Red Blood Count 4.34 M/mm3 (3.65-5.03); Red Cell Distribution Width 13.2 % (13.2-15.2)
[2017-07-06 01:45] LABS: INR 0.87 (0.87-1.13)
[2017-07-06 01:46] LABS: Partial Thromboplastin Time 26.6 Sec. (24.2-36.6)
--- NOTE | 2017-07-06 01:54 | XRay Report ---
FINAL REPORT EXAM: XR CHEST 1V AP HISTORY: Dyspnea TECHNIQUE: A portable upright view the chest was obtained. Comparison is made to the study of 02/12/2017. FINDINGS: Heart size and mediastinum appear normal. The lungs are clear. Pleural fluid is not seen. There is a pacemaker overlying the left chest wall with the lead in the right ventricle. The bones and soft tissues do not show any acute changes. IMPRESSION: No active chest disease.
[2017-07-06 02:04] LABS: Alanine Aminotransferase 26 units/L (7-56); Albumin 3.9 g/dL (3.9-5); BUN/Creatinine Ratio 15; Blood Urea Nitrogen 15 mg/dL (7-17); Calcium 9.2 mg/dL (8.4-10.2); Hemolysis Index 3
[2017-07-06] MEDS ORDERED: SUBLIMAZE IV ONE (02:32)
[2017-07-06] MEDS ORDERED: NACL 0.9% 250ML 250 ML IV ONE (02:32)
[2017-07-06] MEDS ORDERED: NACL 0.9% 500 ML 500 ML ONE (02:38)
--- NOTE | 2017-07-06 03:52 | Cat Scan Report ---
FINAL REPORT EXAM: CT ANGIO CHEST HISTORY: left sided cp TECHNIQUE: A CT angiogram was obtained of the thorax following the intravenous injection of 100 cc of Omnipaque 350. Rotational, sagittal and coronal MIP reconstructions were reviewed. FINDINGS: There is no evidence of pulmonary embolus, vascular congestion, or aortic dissection. The heart size is normal. Pericardial fluid is not seen. There is no evidence of lymphadenopathy. The lungs reveal diffuse interstitial prominence and emphysematous changes. There are no localized infiltrates or effusions. In the posterior segment of the right upper lobe is a noncalcified 8.4 millimeter solitary pulmonary nodule. No additional nodules are seen. At the thoracic inlet there is diffuse enlargement of thyroid gland with heterogeneous attenuation compatible with multinodular goiter. There is a pacemaker along the left chest wall. The skeletal structures reveal multilevel disc degeneration in the thoracic spine. IMPRESSION: No evidence of pulmonary embolus, vascular congestion, or aortic dissection. Emphysema with extensive interstitial changes. 8.4 mm solitary pulmonary nodule in the posterior segment of the right upper lobe. Follow-up study recommended 3 months to confirm stability. Multinodular goiter.
[2017-07-06 05:06] VITALS: BP 122/57
== END 2017-07-06 06:54 | disposition home or self-care (01) ==
LOC: ED 00:49
DX: R07.89 Other chest pain (principal); I10 Essential (primary) hypertension
CPT/HCPCS: 36415; 36569; 71045; 71275; 80053; 82140; 82803; 83735; 83880; 84484; 85025; 85610; 85730; 93005; 93010; 96374; 99285; J3010; J7040; Q9967

== ENCOUNTER 2017-09-29 08:17 | Outpatient (CLI) | payer MEDICAID ==
--- NOTE | 2017-09-29 08:54 | Cat Scan Report ---
CT CHEST WITHOUT CONTRAST: HISTORY: Pulmonary nodule. COMPARISON: 07/06/17. TECHNIQUE: Helical CT in 1.25mm intervals without IV contrast. Sagittal and coronal reformatted images. FINDINGS: Thyroid gland: Normal size. There is a 2.2 cm indeterminate hypodense nodule in the right thyroid lobe which is unchanged. Tracheobronchial tree: Normal. Esophagus: Normal. Heart: Heart size is at the upper limits of normal. A single lead pacemaker device terminates in the right ventricle. Mild coronary artery calcifications are noted. Pericardium: Normal. Mediastinum: Normal. Lung Moy: Stable 8.5 mm soft tissue density nodule in the posterior right upper lobe. No new lung nodule or mass. The remaining lungs are within normal limits. No parenchymal lung disease is appreciated. Pleural Spaces: Normal. Musculoskeletal: Normal. IMPRESSION: Stable 8.5 mm nodule in the posterior right upper lobe.
== END 2017-09-29 08:18 | disposition home or self-care (01) ==
LOC: CT 08:17
PROVIDERS: ATTEND Specialist
DX: R91.1 Solitary pulmonary nodule (principal); I25.10 Atherosclerotic heart disease of native coronary artery without angina pectoris; Z95.0 Presence of cardiac pacemaker
CPT/HCPCS: 71250